=== PATIENT | female | born 1985 | race Caucasian/White ===

== ENCOUNTER 2019-03-17 02:40 | Emergency (ER) | payer MEDICAID ==
[~2019-03-17] VITALS: Ht 157.5 cm; Wt 95.0 kg
[2019-03-17 03:20] VITALS: BP 129/73
== END 2019-03-17 03:23 | disposition home or self-care (01) ==
LOC: ER 02:41
DX: R51 Headache (principal); Z88.2 Allergy status to sulfonamides; Z88.6 Allergy status to analgesic agent
CPT/HCPCS: 99281

== ENCOUNTER 2020-05-02 22:04 | Emergency (ER) | payer MEDICAID ==
[~2020-05-02] VITALS: Ht 160 cm; Wt 86.4 kg
[2020-05-02 22:16] VITALS: BP 157/94
[2020-05-03] MEDS ORDERED: ondansetron 4mg rapidly disintigrating tab PO ONE (00:30)
== END 2020-05-03 00:37 | disposition home or self-care (01) ==
LOC: ER 22:06
DX: R00.2 Palpitations (principal); F41.9 Anxiety disorder, unspecified; R11.0 Nausea; Z88.2 Allergy status to sulfonamides; Z88.8 Allergy status to other drugs, medicaments and biological substances
CPT/HCPCS: 93005; 99283